=== PATIENT | female | born 1995 | race Caucasian/White ===

== ENCOUNTER 2018-12-30 18:20 | Inpatient (IN) | payer OTHER ==
[2018-12-30] MEDS ORDERED: XYLOCAINE 2% INFILTRATI ONE (19:16)
[2018-12-30] MEDS ORDERED: SUBLIMAZE IV PRN (19:16)
[2018-12-30] MEDS ORDERED: BRETHINE IVP PRN (19:16)
[2018-12-30] MEDS ORDERED: MINERAL OIL PO PRN (19:16)
[2018-12-30] MEDS ORDERED: ZOFRAN IV PRN ×2 (19:16→23:24)
[2018-12-30] MEDS ORDERED: NARCAN 0.4 MG/1 ML IV PRN (19:16)
[2018-12-30] MEDS ORDERED: BRETHINE SUB-Q PRN (19:16)
[2018-12-30] MEDS ORDERED: LACTATED RINGERS 1,000 ML IV SCH (20:00)
[2018-12-30] MEDS ORDERED: PITOCin/NS 30 UNIT/500ML 30 UNITS/500 ML BAG IV SCH (20:00)
[2018-12-30] MEDS ORDERED: PITOCin/NS 20 UNIT/1000ML DRIP 20 UNITS/1,000 ML BAG IV SCH (20:00)
[2018-12-30 20:18] LABS: Hematocrit 40.3 % (30.3-42.9); Hemoglobin 13.9 gm/dl (10.1-14.3); Mean Corpuscular HGB Conc 35 % (30-34); Mean Corpuscular Hemoglobin 30 pg (28-32); Mean Corpuscular Volume 87 fl (79-97); Platelet Count 283 K/mm3 (140-440); Red Blood Count 4.65 M/mm3 (3.65-5.03); Red Cell Distribution Width 13.2 % (13.2-15.2)
--- NOTE | 2018-12-30 20:59 | History and Physical Report ---
History of Present Illness Date of examination: 12/30/18 Date of admission: 12/30/18 20:01 Chief complaint: Intense labor pains History of present illness: 23 yo Fe , PAULETTE 12/30/2018, 40 weeks 0 days, presents in active labor. 0 positive, Rubella immune, GBS Negative. Pt initiated early care with [facility] at 6w1d ( records available & reviewed). Pt has hx of depression/anxiety (no current meds). course has been uneventful. 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 denies: smoking, alcohol abuse, prescription drug abuse, IV drug use - Obstetrical History Expected Date of Delivery: 12/30/18 Actual Gestation: 40 Week(s) 0 Day(s) : 1 Para: 0 Hx # Term Pregnancies: 0 Number of Pregnancies: 0 Spontaneous Abortions: 0 Induced : 0 Number of Living Children: 0 Medications and Allergies Allergies Allergy/AdvReac Type Severity Reaction Status Date / Time No Known Allergies Allergy Unverified 12/30/18 18:31 Active Meds: Active Medications Ephedrine Sulfate (Ephedrine Sulfate) 10 mg IV Q2M PRN PRN Reason: Hypotension Fentanyl (Sublimaze) 100 mcg IV Q2H PRN PRN Reason: Labor Pain Lactated Ringer's (Lactated Ringers) 1,000 mls @ 125 mls/hr IV DIRECT BRODIE Oxytocin/Sodium Chloride (Pitocin/Ns 20 Unit/1000ml Drip) 20 units in 1,000 mls @ 125 mls/hr IV DIRECT BRODIE Oxytocin/Sodium Chloride (Pitocin/Ns 30 Unit/500ml) 30 units in 500 mls @ 2 mls/hr IV TITR BRODIE; Protocol Mineral Oil (Mineral Oil) 30 ml PO QHS PRN PRN Reason: Constipation Naloxone HCl (Narcan 0.4 Mg/1 Ml) 0.1 mg IV Q2MIN PRN PRN Reason: Res Rate </= 8 or 02 SAT < 92% Ondansetron HCl (Zofran) 4 mg IV Q8H PRN PRN Reason: Nausea And Vomiting Terbutaline Sulfate (Brethine) 0.25 mg SUB-Q ONCE PRN PRN Reason: Hyperstimulation/Hypertonicity Terbutaline Sulfate (Brethine) 0.25 mg IVP ONCE PRN PRN Reason: Hyperstimulation/Hypertonicity Review of Systems Eyes: normal appearance Cardiovascular: no chest pain, no shortness of breath Respiratory: no shortness of breath Breasts: normal Gastrointestinal: abdominal pain (contractions), nausea, vomiting, no diarrhea Genitourinary: normal appearance, contractions, no vaginal bleeding, no leakage of fluid, no genital sores Integumentary: no rash, no sores, no lesions Psychiatric: anxiety (History; no meds), depression (hx; no meds) - Vital Signs Vital signs: Vital Signs Pulse BP 116 H 124/82 12/30/18 18:30 12/30/18 18:30 Temp Pulse Resp BP Pulse Ox 98.2 F 90 16 121/78 12/30/18 18:37 12/30/18 20:17 12/30/18 18:37 12/30/18 20:17 - Physical Exam Breasts: Positive: normal Cardiovascular: Regular rate, Normal S1, Normal S2, No murmurs Lungs: Positive: Clear to auscultation, Normal air movement Abdomen: Positive: normal appearance, soft, normal bowel sounds. 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 Assessment and Plan A: Term IUP; 40w0d GBS positive Category 1 tracing Active labor P: Admit to L&D; Routine orders IV pain med/epidural PRN Anticipate
[2018-12-30] MEDS ORDERED: DULCOLAX PR PRN (23:24)
[2018-12-30] MEDS ORDERED: TUCKS PAD TP PRN (23:24)
[2018-12-30] MEDS ORDERED: PHENERGAN PO PRN (23:24)
[2018-12-30] MEDS ORDERED: BENADRYL PO PRN (23:24)
[2018-12-30] MEDS ORDERED: LANSINOH TP PRN (23:24)
[2018-12-30] MEDS ORDERED: MILK OF MAGNESIA PO PRN (23:24)
[2018-12-30] MEDS ORDERED: TYLENOL PO PRN (23:24)
[2018-12-30] MEDS ORDERED: NORCO 5/325 PO PRN (23:24)
--- NOTE | 2018-12-30 23:36 | Procedure Note ---
OB Delivery Note - Delivery Date of Delivery: 12/30/18 (23:07) Surgeon: JACKI SUÁREZ (ANGELO) Estimated blood loss: 200cc - Vaginal Delivery presentation: vertex Delivery position: OA Intrapartum events: none Delivery induction: none Delivery augmentation: rupture of membranes Delivery monitor: external FHT, external uterine Route of delivery: (23:07) Delivery placenta: spontaneous (23:12) Delivery cord: 3 umbilical vessels Episiotomy: none Delivery laceration: 1st degree (small; left unrepaired) Anesthesia: intravenous Delivery comments: viable female , PERLA position at 23:07. Vigorous placed [id number]. Delayed cord clamping; cut by FOB with my guidance. Cord blood collected per protocol. Spontaneous neves delivery of intact placenta at 23:12, 3vc. Discarded. 1st degree perineal laceration; approximates well. Left unrepaired. FF@U-2. EBL 200cc. Infant and mother left in stable condition in L&D . - Infant A at 1 minute: 8 at 5 minutes: 9 Infant Gender: Female (7lbs 0oz, 3186 grams, 19")
[2018-12-30] MEDS ORDERED: SODIUM CHLORIDE FLUSH SYRINGE 10 ML IV PRN (23:45)
[2018-12-31] MEDS: MOTRIN PO SCH ×2 (02:06→06:00)
[2018-12-31] MEDS ORDERED: AMMONIA INHALANT IH ONE (04:06)
[2018-12-31] MEDS ORDERED: PITOCin/NS 20 UNIT/1000ML DRIP 20,000 MILLIUNITS/1,000 ML BAG IV ONE (04:07)
[2018-12-31] MEDS ORDERED: CYTOTEC PR ONE (04:24)
[2018-12-31] MEDS ORDERED: CYTOTEC ONE (04:38)
--- NOTE | 2018-12-31 10:08 | Progress Note ---
Assessment and Plan - Patient Problems (1) Status post normal vaginal delivery Current Visit: Yes Status: Acute Plan to address problem: PPD 1 - stable Continue routine PP orders Anticipate discharge in 24-48 hours (2) Leukocytosis Current Visit: Yes Status: Acute Plan to address problem: Currently afebrile but tachycardic Repeat CBC ordered Subjective - Subjective Date of service: 12/31/18 Principal diagnosis: PPD #1; s/p Interval history: see H&P and OB Delivery Procedure Note Patient reports: appetite normal, voiding normally, pain well controlled, ambulating normally, no dizzy ambulation : doing well Objective - Vital Signs Latest vital signs: Vital Signs Temp Pulse Resp BP BP Pulse Ox 12/31/18 07:51 98.3 F 111 H 18 103/52 96 12/31/18 04:25 86 18 104/65 12/31/18 04:05 97.9 F 88 18 90/54 98 12/31/18 01:20 98.3 F 18 115/68 12/31/18 01:17 103 H 97 12/31/18 00:25 109 H 142/61 12/31/18 00:10 98.0 F 116 H 20 182/77 12/30/18 23:54 100 H 119/57 12/30/18 23:40 100 H 124/73 12/30/18 23:30 97.8 F 18 12/30/18 23:24 100 H 123/62 12/30/18 23:17 102 H 118/70 12/30/18 23:06 111 H 98 12/30/18 23:01 131 H 98 12/30/18 22:56 107 H 99 12/30/18 22:51 123 H 100 12/30/18 22:46 108 H 99 12/30/18 22:41 106 H 99 12/30/18 22:36 109 H 100 12/30/18 22:31 123 H 98 12/30/18 22:26 84 97 12/30/18 22:21 111 H 96 12/30/18 22:17 85 137/87 12/30/18 22:16 94 H 98 12/30/18 22:11 92 H 98 12/30/18 22:06 84 98 12/30/18 22:01 99 H 96 12/30/18 21:56 85 99 12/30/18 21:51 103 H 100 03/28/19 21:36 105 H 93 12/30/18 21:17 104 H 129/74 12/30/18 20:45 97.6 F 18 12/30/18 20:17 90 121/78 12/30/18 18:37 98.2 F 16 12/30/18 18:30 116 H 124/82 Intake and Output 12/30/18 12/31/18 12/31/18 23:59 07:59 15:59 Output Total 200 Balance -200 Output: Urine 200 Void 200 Other: Total, Output Amount 200 Weight 70.76 kg Estimated Blood Loss 200 - Exam Cardiovascular: Present: Regular rate Lungs: Present: Clear to auscultation Abdomen: Present: normal appearance, soft Vulva: both: laceration/episiotomy (healing well) Uterus: Present: normal, firm, fundal height at umbilicus Extremities: Present: normal Comments: small lochia - Labs Labs: Abnormal lab results 12/30/18 Range/Units 19:53 WBC 21.7 H (4.5-11.0) K/mm3 MCHC 35 H (30-34) %
[2018-12-31 10:51] LABS: Hematocrit 28.1 % (30.3-42.9); Hemoglobin 9.8 gm/dl (10.1-14.3); Mean Corpuscular HGB Conc 35 % (30-34); Mean Corpuscular Hemoglobin 31 pg (28-32); Mean Corpuscular Volume 88 fl (79-97); Platelet Count 240 K/mm3 (140-440); Red Blood Count 3.19 M/mm3 (3.65-5.03); Red Cell Distribution Width 12.8 % (13.2-15.2)
[2018-12-31] MEDS ORDERED: AFLURIA QUAD 2018-2019 SYRINGE IM ONE (12:00)
[2019-01-01] MEDS ORDERED: BOOSTRIX IM ONE (06:00)
[2019-01-01] MEDS: MOTRIN PO SCH ×7 (06:00→23:55)
--- NOTE | 2019-01-01 10:59 | Progress Note ---
Assessment and Plan A: day 2 S/P spontaneous vaginal delivery. Anemia secondary to and blood loss. P: Repeat CBC this morning. Urinalysis. Iron supplementation. Subjective - Subjective Date of service: 01/01/19 Principal diagnosis: PPD #2; s/p Interval history: day 2 S/P spontaneous vaginal delivery. WBC elevated; repeat ordered. Urinalysis ordered. Patient is voiding without difficulty and she denies dysuria or frequency or flank pain. She reports mild lower back pain. Patient is ambulating well and tolerating a regular diet without nausea or vomiting. Patient denies headache, cough, chest pain, shortness of breath, abdominal pain, leg pain, or heavy bleeding. Patient reports: appetite normal, voiding normally, pain well controlled, flatus, ambulating normally, no dizzy ambulation, no nauseated : doing well Objective - Vital Signs Latest vital signs: Vital Signs Temp Pulse Resp BP BP Pulse Ox 01/01/19 08:26 98.0 F 97 H 20 115/67 97 01/01/19 06:00 18 01/01/19 00:50 98.3 F 80 18 103/67 97 01/01/19 00:00 18 12/31/18 16:36 97 F L 98 H 18 126/81 Intake and Output 12/31/18 01/01/19 01/01/19 23:59 07:59 15:59 Intake Total 680 Output Total 600 Balance 80 Intake: Oral 320 Intake, Free Water 360 Output: Urine 600 Void 600 Other: Total, Intake Amount 320 Total, Output Amount 600 # Voids Void 20 2 - Exam Cardiovascular: Present: Regular rate, Normal S1, Normal S2 Lungs: Present: Clear to auscultation Abdomen: Present: normal appearance, soft. Absent: distention, tenderness, guarding, rigidity Uterus: Present: normal, firm, fundal height below umbilicus. Absent: bogginess, tenderness Extremities: Present: normal. Absent: tenderness, edema
[2019-01-01] MEDS ORDERED: AFLURIA QUAD 2018-2019 SYRINGE IM ONE (12:00)
[2019-01-01 13:46] LABS: Basophils # (Auto) 0.1 K/mm3 (0.0-0.1); Basophils % (Auto) 0.5 % (0.0-1.8); Eosinophils # (Auto) 0.4 K/mm3 (0.0-0.4); Eosinophils % (Auto) 2.7 % (0.0-4.3); Hematocrit 27.7 % (30.3-42.9); Hemoglobin 9.5 gm/dl (10.1-14.3); Lymphocytes # (Auto) 2.2 K/mm3 (1.2-5.4); Lymphocytes % (Auto) 13.4 % (13.4-35.0); Mean Corpuscular HGB Conc 34 % (30-34); Mean Corpuscular Hemoglobin 31 pg (28-32); Mean Corpuscular Volume 89 fl (79-97); Monocytes # (Auto) 1.1 K/mm3 (0.0-0.8); Monocytes % (Auto) 6.7 % (0.0-7.3); Platelet Count 283 K/mm3 (140-440); Red Cell Distribution Width 13.2 % (13.2-15.2)
[2019-01-01] MEDS: FEOSOL PO SCH ×2 (15:10→23:54)
[2019-01-01 16:38] LABS: Bilirubin,Urine NEG (Negative); Blood,Urine LG (Negative); Color,Urine Colorless (Yellow); Protein,Urine <15 mg/dL mg/dL (Negative); Urobilinogen,Urine < 2.0 mg/dL (<2.0)
--- NOTE | 2019-01-01 17:13 | Event Note ---
Date: 01/01/[address] Franklin re: patient's elevated WBC, mildly elevated pulse, and urinalysis results. Dr. Franklin states to keep patient in hospital another night. This plan was shared with patient and patient's nurse.
[2019-01-02] MEDS: FEOSOL PO SCH (09:23)
--- NOTE | 2019-01-02 13:50 | Progress Note ---
Assessment and Plan A: day 3 S/P spontaneous vaginal delivery. Anemia secondary to and blood loss. P: Discharge patient home today. discharge instructions and warning signs discussed in detail with patient. Advised patient to continue taking her vitamin and iron supplement at home. Advised patient to avoid driving, lifting and heavy housework, and intercourse. Advised patient to follow up at [facility] in 1-2 weeks. Patient voiced understanding of discharge instructions. Subjective - Subjective Date of service: 01/02/19 Principal diagnosis: PPD #3; s/p Interval history: day 3 S/P spontaneous vaginal delivery. Patient requests discharge today. Patient is voiding without difficulty and she denies dysuria or frequency or flank pain. She denies lower back pain. Patient is ambulating well and tolerating a regular diet without nausea or vomiting. Patient denies headache, cough, chest pain, shortness of breath, abdominal pain, leg pain, or heavy bleeding. Patient reports: appetite normal, voiding normally, pain well controlled, flatus, ambulating normally, no dizzy ambulation, no nauseated [place]: doing well Objective - Vital Signs Latest vital signs: Vital Signs Temp Pulse Resp BP BP 01/02/19 07:08 97.6 F 82 18 108/63 01/01/19 15:32 97.8 F 108 H 18 112/72 Intake and Output 01/01/19 01/02/19 01/02/19 23:59 07:59 15:59 Intake Total 200 560 Balance 200 560 Intake: Oral 200 560 Other: Total, Intake Amount 200 360 - Exam Cardiovascular: Present: Regular rate, Normal S1, Normal S2 Lungs: Present: Clear to auscultation Abdomen: Present: normal appearance, soft. Absent: distention, tenderness, guarding, rigidity Uterus: Present: normal, firm, fundal height below umbilicus. Absent: bogginess, tenderness Extremities: Absent: tenderness, edema - Labs Labs: Abnormal lab results 01/01/19 01/01/19 Range/Units 13:03 16:07 WBC 16.5 H (4.5-11.0) K/mm3 RBC 3.10 L (3.65-5.03) M/mm3 Hgb 9.5 L (10.1-14.3) gm/dl Hct 27.7 L (30.3-42.9) % [place] # 1.1 H (0.0-0.8) K/mm3 Seg Neutrophils % 76.7 H (40.0-70.0) % Seg Neutrophils # 12.6 H (1.8-7.7) K/mm3 Ur Specific [place] 1.000 L (1.003-1.030)
--- NOTE | 2019-01-02 13:54 | Discharge Summary ---
Providers - Providers Date of Admission: 12/30/18 20:01 Date of discharge: 01/02/19 Attending physician: TONA HUSTON MD Primary care physician: TONA HUSTON MD Hospitalization Reason for admission: active labor Delivery: Episiotomy: none Laceration: 1st degree Other procedures: none complications: none Discharge diagnosis: IUP at term delivered [place] baby: female Pertinent studies: Labs Hospital course: Normal hospital course. Condition at discharge: Good Disposition: DC-01 TO HOME OR SELFCARE - Discharge Diagnoses (1) Term delivered Status: Acute (2) Anemia, blood loss Status: Acute Plan - Provider Discharge Summary Activity: routine, no sex for 6 weeks, no heavy lifting 4 weeks, no strenuous exercise Diet: routine Instructions: routine Additional instructions: Continue taking your vitamins and iron supplements at home. Call your doctor immediately for: * Fever > 100.5 * Heavy vaginal bleeding ( >1 pad per hour) * Severe persistent headache * Shortness of breath * Reddened, hot, painful area to leg or breast - Follow up plan Follow up: TONA HUSTON MD [Primary Care Provider] - 7 Days Forms: [facility] Discharge Summary
[2019-01-02 20:59] VITALS: BP 116/74
== END 2019-01-02 15:00 | disposition home or self-care (01) | DRG 806 ==
LOC: TRG 18:20 → LD 20:01 → OB 12-31 00:55
PROVIDERS: ADMIT Obstetrics & Gynecology; ATTEND Obstetrics & Gynecology
PROC: 10E0XZZ Delivery of Products of Conception, External Approach (ICD-10-PCS; principal; 2018-12-30)
PROC: 3E0234Z Introduction of Serum, Toxoid and Vaccine into Muscle, Percutaneous Approach (ICD-10-PCS; 2019-01-01)
DX: O99.02 Anemia complicating childbirth (principal); O99.13 Other diseases of the blood and blood-forming organs and certain disorders involving the immune mechanism complicating the puerperium; Z37.0 Single live birth; O70.0 First degree perineal laceration during delivery; Z3A.40 40 weeks gestation of pregnancy; D72.829 Elevated white blood cell count, unspecified; Z23 Encounter for immunization; O99.89 Other specified diseases and conditions complicating pregnancy, childbirth and the puerperium; R00.0 Tachycardia, unspecified; D50.0 Iron deficiency anemia secondary to blood loss (chronic)
CPT/HCPCS: 36415; 81001; 85014; 85018; 85025; 85027; 86592; 86850; 86900; 86901; 90471; 90686; 90715; G0378; A6250; J2590; J3010; J7120